=== PATIENT | female | born 1955 | race Caucasian/White ===

== ENCOUNTER → 2017-03-05 | Outpatient (CLI) | payer BC ==
[~2017-03-05] MED LIST: ASCORBIC ACID PO; ASPIRIN PO; BENICAR20 MG PO; CENTRUM SILVER PO; CRANBERRY PO; DIAZEPAM PO; GLUCOSAMINE/MSM PO; IBUPROFEN PO; LORATADINE PO; OMEGA 3 PO; POSTURE600 MG PO; PRAVACHOL PO; VITAMIN C PO; ZANTAC PO; ZOCOR-BORROW, D10 MG PO
--- NOTE | ~2017-03-05 | MY8 ---
[facility] A Service of [facility] RADIOLOGY TEXT RESULTS PATIENT: ABIGAIL VAZ LOCATION: [facility] : 53 UNIT #: [id number] AGE: [address]: Nathaniel Elaine MD SEX: F ORDER DR: [id number] [facility]. [place], [place] [address] [id number] O MR#: [id number] Acc #: [id number] NAME: ABIGAIL VAZ : 1955 SEX: F STUDY DATE/TIME: 03/05/2017 12:58 UNIT: [facility] ROOM: STUDY DESCRIPTION: MY Mammogram Dx Dig Rt Attending Physician: Nathaniel Elaine M.D. Referring Physician: Nathaniel Elaine M.D. Ordering Physician: Nathaniel Elaine M.D. Primary Care Physician: Babak Olea M.D. MEDICAL IMAGING REPORT This report is preliminary unless electronic signature is present EXAM Right digital diagnostic mammogram with CAD. CLINICAL HISTORY 59-year-old female returns for a 6-month follow up mammogram due to an abnormal complex cyst. FINDINGS CC, spot compression CC, MLO, spot compression MLO, and ML views of the right breast were obtained. The 7-8 mm nodule in the lateral aspect of the right breast (10 o'clock position) is unchanged from the prior study. This lesion is in the middle 1/3 of the glandular tissue, approximately 7 cm from the nipple. No microcalcifications or architectural distortion. It is unchanged from the prior study. Ultrasound evaluation of this area shows a benign appearing cyst. IMPRESSION Benign right mammogram. Small cyst in the lateral right breast is unchanged from the prior study. Patients over the age of 40 are entered into a reminder system with target due date for the next mammogram. A result letter will also be sent to the patient. BIRADS: 2 Benign finding. RECOMMENDATIONS Return to annual screening mammogram with the next mammogram due in July or August 2017. [facility] A Service [facility] RADIOLOGY TEXT RESULTS PATIENT: ABIGAIL VAZ LOCATION: [facility] : 53 UNIT #: [id number] AGE: [address]: Nathaniel Elaine MD SEX: F ORDER DR: Dictated by... Pipo Burns M.D. THIS IS AN ELECTRONICALLY VERIFIED REPORT Pipo Burns M.D. at 03/05/2017 4:19 PM C/donald TD: 03/05/2017 15:51 JOB #: [id number] MEDICAL IMAGING REPORT Page 1 of 1 COPY
--- NOTE | ~2017-03-05 | US24 ---
[facility] A Service of [facility] RADIOLOGY TEXT RESULTS PATIENT: ABIGAIL VAZ LOCATION: [facility] : 53 UNIT #: [id number] AGE: [address]: Nathaniel Elaine MD SEX: F ORDER DR: [id number] [facility]. [place], [place] [address] [id number] O MR#: [id number] Acc #: [id number] NAME: ABIGAIL VAZ : 1955 SEX: F STUDY DATE/TIME: 03/05/2017 13:10 UNIT: [facility] ROOM: STUDY DESCRIPTION: US Breast Unilateral Attending Physician: Nathaniel Elaine M.D. Referring Physician: Nathaniel Elaine M.D. Ordering Physician: Nathaniel Elaine M.D. Primary Care Physician: Babak Olea M.D. MEDICAL IMAGING REPORT This report is preliminary unless electronic signature is present EXAM Right breast ultrasound. INDICATIONS 6-month followup for a right breast cyst. FINDINGS Brannon-scale and color-Doppler ultrasound of the right breast was performed. There is a benign cyst in the right breast at the 10 o'clock position measuring up to 0.7-0.8 cm. It is unchanged from prior exam. This is approximately a benign summation nipple (10 o'clock position). There is a smaller cyst measuring 2 mm that is 8 cm from the nipple, also at the 10 o'clock position. No suspicious lesions are identified. IMPRESSION Benign right breast ultrasound. RECOMMENDATION Return to annual screening mammogram with the next mammogram due in July or August 2017. Patients over the age of 40 are entered into a reminder system with target due date for the next mammogram. A result letter will also be sent to the patient. BIRADS: 2 Benign finding. Dictated by... Pipo Burns M.D. THIS IS AN ELECTRONICALLY VERIFIED REPORT [facility] A Service of [facility] RADIOLOGY TEXT RESULTS PATIENT: ABIGAIL VAZ LOCATION: [facility] : 53 UNIT #: [id number] AGE: [address]: Nathaniel Elaine MD SEX: F ORDER DR: Pipo Burns M.D. at 03/05/2017 3:14 PM RPLuis/donald TD: 03/05/2017 14:17 JOB #: [id number] MEDICAL IMAGING REPORT Page 1 of 1 COPY
== END | disposition home or self-care (01) ==
LOC: CMAM 12:07
DX: N63 Unspecified lump in breast (principal); N60.01 Solitary cyst of right breast
CPT/HCPCS: 76641; G0206